=== PATIENT | female | born 1980 | race Caucasian/White ===

== ENCOUNTER 2016-10-24 12:49 | Emergency (ER) | payer OTHER ==
[~2016-10-24] VITALS: Ht 170.2 cm; Wt 72.6 kg
[~2016-10-24 12:49] MED LIST: CYCL5TAB PO; PROM25TA10 PO
[2016-10-24 13:00] VITALS: BP 120/70
--- NOTE | 2016-10-24 13:55 | PHYS DOC ---
Past Medical History Past Medical History: Anemia, Asthma, Bipolar, Depression, Other Additional Past Medical Histor: ADHD, MULTIPLE PERSONALITIES Past Surgical History: No Surgical History Alcohol Use: Heavy Drug Use: Cocaine, Marijuana Adult General Chief Complaint Chief Complaint: LOWER BACK PAIN OR INJURY [facility] HPI Patient is a 35 year old female comes emergency room today with complaint of atraumatic low back pain that began this morning. Patient denies history of spinal column or spinal cord injuries. She denies any history of bone forming disorders. Patient does report that her urine has been dark with increased frequency for approximately one week. Patient states that she does have a history of kidney infections. Patient denies antibiotic use within the past 90 days. Patient has any abdominal pain, pelvic pain, vaginal discharge, vaginal bleeding, nausea or vomiting. She denies fevers or chills as well. Of incidental note, patient was quick to ask for a work note for today as she is convinced ibuprofen work. Review of Systems Review of Systems Constitutional: Denies fever or chills [] Eyes: Denies change in visual acuity, redness, or eye pain [] HENT: Denies nasal congestion or sore throat [] Respiratory: Denies cough or shortness of breath [] Cardiovascular: No additional information not addressed in HPI [] GI: Denies abdominal pain, nausea, vomiting, bloody stools or diarrhea [] : Denies dysuria or hematuria [] Musculoskeletal: Denies back pain or joint pain [] Integument: Denies rash or skin lesions [] Neurologic: Denies headache, focal weakness or sensory changes [] Endocrine: Denies polyuria or polydipsia [] Allergies Allergies Allergies Coded Allergies Type Severity Reaction Last Updated Verified No Known Drug Allergies 07/14/16 No Physical Exam Physical Exam Constitutional: Well developed, well nourished, no acute distress, non-toxic appearance. Patient is afebrile. HENT: Normocephalic, atraumatic, bilateral external ears normal, oropharynx moist, no oral exudates, nose normal. [] Eyes: PERRLA, EOMI, conjunctiva normal, no discharge. [] Neck: Normal range of motion, no tenderness, supple, no stridor. [] Cardiovascular:Heart rate regular rhythm, no murmur [] Lungs & Thorax: Bilateral breath sounds clear to auscultation [] Abdomen: Bowel sounds normal, soft, no tenderness, no masses, no pulsatile masses. [] Skin: Warm, dry, no erythema, no rash. [] Back: Back is normal in appearance. There is no CVA tenderness. There is tenderness to palpation of the bilateral paraspinous soft tissues at the level of L3-L5. There is no palpable defect, deformity or spasm. Patient has no midline tenderness or step-off. Extremities: No tenderness, no cyanosis, no clubbing, ROM intact, no edema. [] Neurologic: Alert and oriented X 3, normal motor function, normal sensory function, no focal deficits noted. [] Psychologic: Affect normal, judgement normal, mood normal. [] Current Patient Data Vital Signs Vital Signs Date Time Temp Pulse Resp B/P Pulse Ox O2 Delivery O2 Flow Rate FiO2 10/24/16 13:00 98.1 85 16 96 Room Air 98.1 Lab Values Laboratory Tests Test 10/24/16 13:00 Urine Collection Type Unknown Urine Color Yellow Urine Clarity Cloudy Urine pH 7.0 Urine Specific [place] >=1.030 Urine Protein Negativemg/dL (NEG-TRACE) Urine Glucose (UA) Negativemg/dL (NEG) Urine Ketones (Stick) Tracemg/dL (NEG) Urine Blood Moderate (NEG) Urine Nitrite Positive (NEG) Urine Bilirubin Negative (NEG) Urine Urobilinogen Dipstick 1.0mg/dL (0.2 mg/dL) Urine Leukocyte Esterase Trace (NEG) Urine RBC 0/HPF (0-2) Urine WBC 5-10/HPF (0-4) Urine Squamous Epithelial Cells Few/LPF Urine Bacteria Many/HPF (0-FEW) Urine Mucus Mod/LPF EKG EKG [] Radiology/Procedures Radiology/Procedures [] Course & Med Decision Making Course & Med Decision Making Pertinent Labs and Imaging studies reviewed. (See chart for details) [] Dragon Disclaimer Dragon Disclaimer This electronic medical record was generated, in whole or in part, using a voice recognition dictation system. Departure Departure Impression: Primary Impression: Back pain Additional Impression: Urinary tract infection Disposition: 01 HOME, SELF-CARE Condition: GOOD Referrals: NO PCP (PCP) Patient Instructions: Back Pain, Adult, [id number], Urinary Tract Infection, [id number] Additional Instructions: 1. Your urine shows evidence of a urinary tract infection. This is commonly called a bladder infection. This is NOT a kidney infection. 2. Take the medication as prescribed. 3. Review the discharge instructions for self-care and reasons to return to the emergency department. 4. Use the pamphlet provided for assistance in finding a primary care doctor if you do not have one. If you do have a primary care doctor, then call this afternoon or tomorrow morning to schedule follow-up appointment for next week. Scripts Naproxen 500 Mg Tablet1 Tab PO BID back pain #20 TAB Ref 1 Prov:ERROL MONTEJO 10/24/16 Ciprofloxacin Hcl 500 Mg Tablet1 Tab PO BID #10 TAB Prov:ERROL MONTEJO 10/24/16 Problem Qualifiers ERROL MONTEJO Oct 24, 2016 13:55
[2016-10-24 14:24] LABS: BILIRUBIN,URINE NEGATIVE (NEG); GLUCOSE,URINE NEGATIVE (NEG); NITRITE,URINE POSITIVE (NEG); PROTEIN,URINE NEGATIVE (NEG-TRACE)
[2016-10-24 14:38] LABS: BACTERIA,URINE MANY /HPF (0-FEW); RBC,URINE 0 /HPF (0-2); SQUAMOUS EPITHELIAL CELL,UR FEW /LPF
[2016-10-24] MEDS ORDERED: NAPR500T3 PO (14:46)
[2016-10-24] MEDS ORDERED: CIPR500T PO (14:46)
== END 2016-10-24 14:50 | disposition home or self-care (01) ==
LOC: ER 12:49
DX: N39.0 Urinary tract infection, site not specified (principal); F90.9 Attention-deficit hyperactivity disorder, unspecified type; F31.9 Bipolar disorder, unspecified; J45.909 Unspecified asthma, uncomplicated; F44.81 Dissociative identity disorder; F12.10 Cannabis abuse, uncomplicated; F14.10 Cocaine abuse, uncomplicated; F10.10 Alcohol abuse, uncomplicated
CPT/HCPCS: 81001; 81025; 87086; 87186; 99284

== ENCOUNTER 2016-11-27 15:23 | Emergency (ER) | payer OTHER ==
[~2016-11-27 15:23] MED LIST changes: +CIPR500T PO; +NAPR500T3 PO
[2016-11-27 15:29] VITALS: BP 126/79
--- NOTE | 2016-11-27 15:42 | PHYS DOC ---
Past Medical History Past Medical History: Anemia, Asthma, Bipolar, Depression, Other Additional Past Medical Histor: ADHD, MULTIPLE PERSONALITIES Past Surgical History: No Surgical History Alcohol Use: Heavy Drug Use: Cocaine, Marijuana Adult General Chief Complaint Chief Complaint: BACK PAIN OR INJURY [facility] HPI Patient is a 35 year old female presents with a 2 day complaint of atraumatic low back pain, vomiting and dysuria. Patient states similar symptoms when she was last seen here. Patient states it was 2 weeks ago she was in the emergency department. Review of records show the patient was seen here October 24 by myself with the same complaint. Patient states that she did not take the antibiotics at that time. She denies any fevers or chills. She denies any bilious or bloody emesis. She denies any abdominal pain. She reports dysuria. She denies pelvic pain, vaginal bleeding or vaginal discharge. Patient states that she has not established a primary care doctor since her last visit here. Review of Systems Review of Systems Constitutional: Denies fever or chills [] Eyes: Denies change in visual acuity, redness, or eye pain [] HENT: Denies nasal congestion or sore throat [] Respiratory: Denies cough or shortness of breath [] Cardiovascular: No additional information not addressed in HPI [] GI: Denies abdominal pain, nausea, vomiting, bloody stools or diarrhea [] : Denies dysuria or hematuria [] Musculoskeletal: Denies back pain or joint pain [] Integument: Denies rash or skin lesions [] Neurologic: Denies headache, focal weakness or sensory changes [] Endocrine: Denies polyuria or polydipsia [] Allergies Allergies Allergies Coded Allergies Type Severity Reaction Last Updated Verified No Known Drug Allergies 07/14/16 No Physical Exam Physical Exam Constitutional: Well developed, well nourished, no acute distress, non-toxic appearance. Patient is afebrile. HENT: Normocephalic, atraumatic, bilateral external ears normal, oropharynx moist, no oral exudates, nose normal. Eyes: PERRLA, EOMI, conjunctiva normal, no discharge. [] Neck: Normal range of motion, no tenderness, supple, no stridor. Cardiovascular:Heart rate regular rhythm, no murmur Lungs & Thorax: Bilateral breath sounds clear to auscultation [] Abdomen: Bowel sounds normal, soft, no tenderness, no masses, no pulsatile masses. Skin: Warm, dry, no erythema, no rash. Brisk skin turgor. Back: No tenderness, no CVA tenderness. [] Extremities: No tenderness, no cyanosis, no clubbing, ROM intact, no edema. [] Neurologic: Alert and oriented X 3, normal motor function, normal sensory function, no focal deficits noted. [] Psychologic: Affect normal, judgement normal, mood normal. [] Current Patient Data Vital Signs Vital Signs Date Time Temp Pulse Resp B/P Pulse Ox O2 Delivery O2 Flow Rate FiO2 11/27/16 15:29 98.1 102 18 97 Room Air 98.1 Lab Values Laboratory Tests Test 11/27/16 14:48 11/27/16 15:40 POC Urine HCG, Qualitative Hcg negative (Negative) Urine Collection Type Unknown Urine Color Yellow Urine Clarity Cloudy Urine pH 6.0 Urine Specific [place] 1.025 Urine Protein 30mg/dL (NEG-TRACE) Urine Glucose (UA) Negativemg/dL (NEG) Urine Ketones (Stick) Negativemg/dL (NEG) Urine Blood Trace (NEG) Urine Nitrite Positive (NEG) Urine Bilirubin Negative (NEG) Urine Urobilinogen Dipstick 1.0mg/dL (0.2 mg/dL) Urine Leukocyte Esterase Small (NEG) Urine RBC 1-2/HPF (0-2) Urine WBC >40/HPF (0-4) Urine Squamous Epithelial Cells Few/LPF Urine Bacteria Many/HPF (0-FEW) Urine Mucus Mod/LPF EKG EKG [] Radiology/Procedures Radiology/Procedures [] Course & Med Decision Making Course & Med Decision Making Clinically, patient has no evidence of pyelonephritis. She does have a urinary tract infection. Patient has already demonstrated a history of noncompliance with antibiotics. She was also quick to express that she needs a work note for tonight. [place] Disclaimer Dragon Disclaimer This electronic medical record was generated, in whole or in part, using a voice recognition dictation system. Departure Departure Impression: Primary Impression: Urinary tract infection Disposition: 01 HOME, SELF-CARE Condition: GOOD Referrals: NO PCP (PCP) Patient Instructions: Urinary Tract Infection, [id number] Additional Instructions: 1. You have a bladder infection. There is no evidence of a kidney infection. 2. You need to take the medication as prescribed. You need to establish follow- up care with a primary care doctor. Use the pamphlet provided with your discharge instructions for assistance in finding one. 3. Review the discharge instructions provided for self-care and reasons to return to the emergency department. Scripts Naproxen 500 Mg Tablet1 Tab PO BID back pain #30 TAB Ref 1 Prov:ERROL MONTEJO 11/27/16 Nitrofurantoin Macrocrystal (Nitrofurantoin)100 Mg Capsule1 Cap PO BID #14 CAP Prov:ERROL MONTEJO 11/27/16 ERROL MONTEJO Nov 27, 2016 15:42
[2016-11-27 15:54] LABS: BILIRUBIN,URINE NEGATIVE (NEG); GLUCOSE,URINE NEGATIVE (NEG); NITRITE,URINE POSITIVE (NEG); PROTEIN,URINE 30 mg/dL (NEG-TRACE)
[2016-11-27 16:07] LABS: BACTERIA,URINE MANY /HPF (0-FEW); WBC,URINE >40 /HPF (0-4)
[2016-11-27 16:08] LABS: SQUAMOUS EPITHELIAL CELL,UR FEW /LPF
[2016-11-27] MEDS ORDERED: NITR100C PO (16:21)
[2016-11-27] MEDS ORDERED: NAPR500T3 PO (16:21)
== END 2016-11-27 16:29 | disposition home or self-care (01) ==
LOC: ER 15:23
DX: N39.0 Urinary tract infection, site not specified (principal); J45.909 Unspecified asthma, uncomplicated; F14.10 Cocaine abuse, uncomplicated; F12.10 Cannabis abuse, uncomplicated
CPT/HCPCS: 81001; 81025; 87086; 87186; 99284

== ENCOUNTER 2017-01-18 15:56 | Emergency (ER) | payer OTHER ==
[~2017-01-18 15:56] MED LIST changes: +NITR100C PO
[2017-01-18 16:05] VITALS: BP 122/70
[2017-01-18 16:39] LABS: BILIRUBIN,URINE NEGATIVE (NEG); GLUCOSE,URINE NEGATIVE (NEG); NITRITE,URINE POSITIVE (NEG); PROTEIN,URINE NEGATIVE (NEG-TRACE); UROBILINOGEN,URINE 0.2 mg/dL (0.2 mg/dL)
[2017-01-18 17:01] LABS: BACTERIA,URINE MANY /HPF (0-FEW); RBC,URINE 20-40 /HPF (0-2); SQUAMOUS EPITHELIAL CELL,UR FEW /LPF
--- NOTE | 2017-01-18 17:03 | PHYS DOC ---
Past Medical History Past Medical History: Anemia, Asthma, Bipolar, Depression, Other Additional Past Medical Histor: ADHD, MULTIPLE PERSONALITIES Past Surgical History: No Surgical History Alcohol Use: Heavy Drug Use: Cocaine, Marijuana Adult General Chief Complaint Chief Complaint: ABDOMINAL PAIN [facility] HPI Patient is a 36 year old female who presents with vaginal bleeding, abdominal cramping, and nausea that are typical of her menstrual cycles, but pain is slightly worse than usual and blood is brighter. 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 She also is concerned that she did not take antibiotics prescribed UTI during last ED visit here in due to money issues. She now has money for this and is curious if she still needs treatment due to symptoms. She does not currently have nausea. She denies f/c, emesis, back pain, diarrhea, constipation, vaginal discharge. Review of Systems Review of Systems Constitutional: Denies fever or chills [] Eyes: Denies change in visual acuity, redness, or eye pain [] HENT: Denies nasal congestion or sore throat [] Respiratory: Denies cough or shortness of breath [] Cardiovascular: No additional information not addressed in HPI [] GI: Denies vomiting, bloody stools or diarrhea [] : Denies dysuria or hematuria [] Musculoskeletal: Denies back pain or joint pain [] Integument: Denies rash or skin lesions [] Neurologic: Denies headache, focal weakness or sensory changes [] Endocrine: Denies polyuria or polydipsia [] Allergies Allergies Allergies Coded Allergies Type Severity Reaction Last Updated Verified No Known Drug Allergies 07/14/16 No Physical Exam Physical Exam Constitutional: Well developed, well nourished, no acute distress, non-toxic appearance. [] HENT: Normocephalic, atraumatic, bilateral external ears normal, oropharynx moist, nose normal. [] Eyes: PERRLA, EOMI. [] Neck: Normal range of motion, supple. [] Cardiovascular:Heart rate regular rhythm [] Lungs & Thorax: Bilateral breath sounds clear to auscultation [] Abdomen: Bowel sounds normal, soft, no tenderness. [] Skin: Warm, dry, no erythema, no rash. [] Back: Normal ROM. [] Extremities: No tenderness, ROM intact, no edema. [] Neurologic: Alert and oriented X 3, normal motor function, normal sensory function, no focal deficits noted. [] Psychologic: Affect normal, judgement normal, mood normal. [] Current Patient Data Vital Signs Vital Signs Date Time Temp Pulse Resp B/P (MAP) Pulse Ox O2 Delivery O2 Flow Rate FiO2 01/18/17 16:05 98.5 72 18 122/70 (87) 97 98.5 Lab Values Laboratory Tests Test 01/18/17 15:20 01/18/17 16:10 POC Urine HCG, Qualitative Hcg negative (Negative) Urine Collection Type Unknown Urine Color Yellow Urine Clarity Clear Urine pH 7.0 Urine Specific [place] 1.010 Urine Protein Negative mg/dL (NEG-TRACE) Urine Glucose (UA) Negative mg/dL (NEG) Urine Ketones (Stick) Trace mg/dL (NEG) Urine Blood Large (NEG) Urine Nitrite Positive (NEG) Urine Bilirubin Negative (NEG) Urine Urobilinogen Dipstick 0.2 mg/dL (0.2 mg/dL) Urine Leukocyte Esterase Small (NEG) Urine RBC 20-40 /HPF (0-2) Urine WBC 1-4 /HPF (0-4) Urine Squamous Epithelial Cells Few /LPF Urine Bacteria Many /HPF (0-FEW) Course & Med Decision Making Course & Med Decision Making Pertinent Labs and Imaging studies reviewed. (See chart for details) Prior urine cultures are sensitive to bactrim. Has evidence of UTI today. 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 Return precautions given. She understands and agrees with plan. Dragon Disclaimer Dragon Disclaimer This electronic medical record was generated, in whole or in part, using a voice recognition dictation system. Departure Departure Impression: Primary Impression: Urinary tract infection Disposition: HOME, SELF-CARE Condition: STABLE Referrals: NO PCP (PCP) Patient Instructions: Urinary Tract Infection, [id number] Additional Instructions: Take bactrim for UTI. Follow up with your supervisor of communications. Return for any concerns. Scripts Sulfamethoxazole/Trimethoprim (BACTRIM DS TABLET) 1 Each Tablet 1 TAB PO BID, #10 TAB Prov: Tiffany BOWDEN MD 01/18/17 Problem Qualifiers Primary Impression: Urinary tract infection Urinary tract infection type: acute cystitis Hematuria presence: without hematuria Qualified Codes: N30.00 - Acute cystitis without hematuria Tiffany BOWDEN MD January 18, 2017 17:03
[2017-01-18] MEDS ORDERED: SULF1TAB24 PO (17:07)
== END 2017-01-18 17:30 | disposition home or self-care (01) ==
LOC: ER 17:26
DX: N39.0 Urinary tract infection, site not specified (principal); F90.9 Attention-deficit hyperactivity disorder, unspecified type; J45.909 Unspecified asthma, uncomplicated; F31.9 Bipolar disorder, unspecified; Z86.2 Personal history of diseases of the blood and blood-forming organs and certain disorders involving the immune mechanism; F12.10 Cannabis abuse, uncomplicated; F14.10 Cocaine abuse, uncomplicated; F10.10 Alcohol abuse, uncomplicated
CPT/HCPCS: 81001; 81025; 84703; 87086; 99284

== ENCOUNTER 2017-03-12 13:24 | Emergency (ER) | payer OTHER ==
[~2017-03-12] VITALS: Ht 165.1 cm; Wt 52.2 kg
[~2017-03-12 13:24] MED LIST changes: +SULF1TAB24 PO
[2017-03-12 14:31] LABS: BILIRUBIN,URINE NEGATIVE (NEG); GLUCOSE,URINE NEGATIVE (NEG); NITRITE,URINE POSITIVE (NEG); PH,URINE 6.5; PROTEIN,URINE 30 mg/dL (NEG-TRACE)
[2017-03-12 14:37] LABS: BACTERIA,URINE MANY /HPF (0-FEW); RBC,URINE RARE /HPF (0-2); SQUAMOUS EPITHELIAL CELL,UR MANY /LPF
[2017-03-12 14:58] LABS: BASO % 0 % (0-3); EOS % 3 % (0-3); HEMATOCRIT 40.1 % (36.0-47.0); HEMOGLOBIN 14.1 g/dL (12.0-15.5); LYMPH # 1.9 x10^3/uL (1.0-4.8); LYMPH % 22 % (24-48); MEAN CORPUSCULAR HEMOGLOBIN 31 pg (25-35); MEAN CORPUSCULAR HGB CONC 35 g/dL (31-37); MEAN CORPUSCULAR VOLUME 87 fL (79-100); MONO % 11 % (0-9); NEUT % 64 % (31-73); PLATELET COUNT 193 x10^3/uL (140-400); RED BLOOD COUNT 4.61 x10^6/uL (3.50-5.40); RED CELL DISTRIBUTION WIDTH 13.2 % (11.5-14.5); WHITE BLOOD COUNT 8.6 x10^3/uL (4.0-11.0)
[2017-03-12] MEDS ORDERED: KETOROLAC TROMETHAMINE 30 MG/ML INJ. IV ONE (15:00)
[2017-03-12] MEDS ORDERED: ONDANSETRON PF 4 MG/2 ML VIAL. IV ONE (15:00)
[2017-03-12] MEDS ORDERED: IV NORMAL SALINE 1000ML BAG 1,000 ML IV SCH (15:00)
[2017-03-12 15:17] LABS: CALCIUM 9.2 mg/dL (8.5-10.1); CREATININE 0.5 mg/dL (0.6-1.0); GFR 141.2; POTASSIUM 3.6 mmol/L (3.5-5.1)
[2017-03-12 15:22] LABS: ALBUMIN 3.9 g/dL (3.4-5.0); ALBUMIN/GLOBULIN RATIO 1.2 (1.0-1.7); TOTAL BILIRUBIN 0.5 mg/dL (0.2-1.0); TOTAL PROTEIN 7.2 g/dL (6.4-8.2)
--- NOTE | 2017-03-12 15:49 | RAD ---
Right upper quadrant abdominal ultrasound, 03/12/2017: History: Epigastric and right upper quadrant pain The gallbladder is within normal limits in size. There is no sonographic evidence of cholelithiasis. The gallbladder terrazas are not thickened. The common hepatic duct measures 6 mm which is at the upper limits of normal. There is no evidence of intrahepatic bile duct dilatation. No hepatic mass is seen. The visualized portions of the pancreas are unremarkable. IMPRESSION: No significant gallbladder abnormality is detected.
[2017-03-12 16:30] VITALS: BP 109/64
[2017-03-12] MEDS ORDERED: CEPH-264 PO (16:54)
--- NOTE | 2017-03-12 16:54 | PHYS DOC ---
Past Medical History Past Medical History: Anemia, Asthma, Bipolar, Depression, Other Additional Past Medical Histor: ADHD, MULTIPLE PERSONALITIES Past Surgical History: No Surgical History Alcohol Use: Occasionally Drug Use: Marijuana Adult General Chief Complaint Chief Complaint: ABDOMINAL PAIN HPI HPI Patient is a 36 year old [f__sex] who presents with [] Review of Systems Review of Systems Constitutional: Denies fever or chills [] Eyes: Denies change in visual acuity, redness, or eye pain [] HENT: Denies nasal congestion or sore throat [] Respiratory: Denies cough or shortness of breath [] Cardiovascular: No additional information not addressed in HPI [] GI: Denies abdominal pain, nausea, vomiting, bloody stools or diarrhea [] : Denies dysuria or hematuria [] Musculoskeletal: Denies back pain or joint pain [] Integument: Denies rash or skin lesions [] Neurologic: Denies headache, focal weakness or sensory changes [] Endocrine: Denies polyuria or polydipsia [] Current Medications Current Medications Current Medications Medications (Trade) Dose Ordered Sig/Kia Start Time Stop Time Status Last Admin Dose Admin Cephalexin HCl (Keflex) 500 mg BID 03/12/17 17:00 Ketorolac Tromethamine (Toradol) 30 mg 1X ONCE 03/12/17 15:00 03/12/17 15:01 DC 03/12/17 15:10 30 MG Ondansetron HCl (Zofran) 4 mg 1X ONCE 03/12/17 15:00 03/12/17 15:01 DC 03/12/17 15:10 4 MG Sodium Chloride 1,000 ml @ 1,000 mls/hr Q1H 03/12/17 15:00 03/12/17 15:09 1,000 MLS/HR Allergies Allergies Allergies Coded Allergies Type Severity Reaction Last Updated Verified No Known Drug Allergies 07/14/16 No Physical Exam Physical Exam Constitutional: Well developed, well nourished, no acute distress, non-toxic appearance. [] HENT: Normocephalic, atraumatic, bilateral external ears normal, oropharynx moist, no oral exudates, nose normal. [] Eyes: PERRLA, EOMI, conjunctiva normal, no discharge. [] Neck: Normal range of motion, no tenderness, supple, no stridor. [] Cardiovascular:Heart rate regular rhythm, no murmur [] Lungs & Thorax: Bilateral breath sounds clear to auscultation [] Abdomen: Bowel sounds normal, soft, no tenderness, no masses, no pulsatile masses. [] Skin: Warm, dry, no erythema, no rash. [] Back: No tenderness, no CVA tenderness. [] Extremities: No tenderness, no cyanosis, no clubbing, ROM intact, no edema. [] Neurologic: Alert and oriented X 3, normal motor function, normal sensory function, no focal deficits noted. [] Psychologic: Affect normal, judgement normal, mood normal. [] Current Patient Data Vital Signs Vital Signs Date Time Temp Pulse Resp B/P (MAP) Pulse Ox O2 Delivery O2 Flow Rate FiO2 03/12/17 13:30 98.2 77 20 112/65 (81) 95 Room Air 98.2 Lab Values Laboratory Tests Test 03/12/17 12:41 03/12/17 13:33 03/12/17 14:55 POC Urine HCG, Qualitative Hcg negative (Negative) Urine Collection Type Unknown Urine Color Yellow Urine Clarity Cloudy Urine pH 6.5 Urine Specific [place] 1.025 Urine Protein 30 mg/dL (NEG-TRACE) Urine Glucose (UA) Negative mg/dL (NEG) Urine Ketones (Stick) 40 mg/dL (NEG) Urine Blood Negative (NEG) Urine Nitrite Positive (NEG) Urine Bilirubin Negative (NEG) Urine Urobilinogen Dipstick 1.0 mg/dL (0.2 mg/dL) Urine Leukocyte Esterase Moderate (NEG) Urine RBC Rare /HPF (0-2) Urine WBC 11-20 /HPF (0-4) Urine Squamous Epithelial Cells Many /LPF Urine Bacteria Many /HPF (0-FEW) Urine Mucus Marked /LPF White Blood Count 8.6 x10^3/uL (4.0-11.0) Red Blood Count 4.61 x10^6/uL (3.50-5.40) Hemoglobin 14.1 g/dL (12.0-15.5) Hematocrit 40.1 % (36.0-47.0) Mean Corpuscular Volume 87 fL (79-100) Mean Corpuscular Hemoglobin 31 pg (25-35) Mean Corpuscular Hemoglobin Concent 35 g/dL (31-37) Red Cell Distribution Width 13.2 % (11.5-14.5) Platelet Count 193 x10^3/uL (140-400) Neutrophils (%) (Auto) 64 % (31-73) Lymphocytes (%) (Auto) 22 % (24-48) L Monocytes (%) (Auto) 11 % (0-9) H Eosinophils (%) (Auto) 3 % (0-3) Basophils (%) (Auto) 0 % (0-3) Neutrophils # (Auto) 5.5 x10^3uL (1.8-7.7) Lymphocytes # (Auto) 1.9 x10^3/uL (1.0-4.8) Monocytes # (Auto) 1.0 x10^3/uL (0.0-1.1) Eosinophils # (Auto) 0.2 x10^3/uL (0.0-0.7) Basophils # (Auto) 0.0 x10^3/uL (0.0-0.2) Sodium Level 139 mmol/L (136-145) Potassium Level 3.6 mmol/L (3.5-5.1) Chloride Level 103 mmol/L (98-107) Carbon Dioxide Level 24 mmol/L (21-32) Anion Gap 12 (6-14) Blood Urea Nitrogen 10 mg/dL (7-20) Creatinine 0.5 mg/dL (0.6-1.0) L Estimated GFR (Cockcroft-Gault) 141.2 BUN/Creatinine Ratio 20 (6-20) Glucose Level 110 mg/dL (70-99) H Calcium Level 9.2 mg/dL (8.5-10.1) Total Bilirubin 0.5 mg/dL (0.2-1.0) Aspartate Amino Transferase (AST) 15 U/L (15-37) Alanine Aminotransferase (ALT) 16 U/L (14-59) Alkaline Phosphatase 65 U/L (46-116) Total Protein 7.2 g/dL (6.4-8.2) Albumin 3.9 g/dL (3.4-5.0) Albumin/Globulin Ratio 1.2 (1.0-1.7) Lipase 110 U/L (73-393) Laboratory Tests 03/12/17 14:55 Laboratory Tests 03/12/17 14:55 EKG EKG [] Radiology/Procedures Radiology/Procedures [] Course & Med Decision Making Course & Med Decision Making Pertinent Labs and Imaging studies reviewed. (See chart for details) [] Dragon Disclaimer Dragon Disclaimer This electronic medical record was generated, in whole or in part, using a voice recognition dictation system. Departure Departure Impression: Primary Impression: Urinary tract infection Disposition: 01 HOME, SELF-CARE Condition: IMPROVED Referrals: NO PCP (PCP) Patient Instructions: Abdominal Pain (Nonspecific), Urinary Tract Infection Additional Instructions: It is not clear what was causing your abdominal pain today that has now resolved. It is possible he may have some gastritis which is irritation of the stomach. Consider taking [id number] Prilosec to see if this might help your chronic recurrent symptoms of epigastric discomfort. Your labs and ultrasound were unremarkable today except the urinalysis showed a you have a urinary tract infection. Finish Keflex as prescribed and follow up with your doctor in 1-2 days. Drink plenty of fluids and return immediately for new severe or worsening symptoms Scripts Cephalexin (KEFLEX) 500 Mg Capsule 1 CAP PO QID, #56 CAP Prov: GURPREET MENDOZA MD 03/12/17 GURPREET MENDOZA MD Mar 12, 2017 16:54
[2017-03-12] MEDS ORDERED: CEPHALEXIN 250 MG CAPSULE. PO SCH (17:00)
== END 2017-03-12 17:05 | disposition home or self-care (01) ==
LOC: ER 13:24
DX: N39.0 Urinary tract infection, site not specified (principal); J45.909 Unspecified asthma, uncomplicated; F90.9 Attention-deficit hyperactivity disorder, unspecified type; F31.9 Bipolar disorder, unspecified; F44.81 Dissociative identity disorder; F12.10 Cannabis abuse, uncomplicated
CPT/HCPCS: 36415; 76705; 80053; 81001; 81025; 83690; 85027; 87086; 96361; 96374; 96375; 99285; J1885; J2405; J7030

== ENCOUNTER 2020-12-27 19:49 | Emergency (ER) | payer OTHER ==
[~2020-12-27] VITALS: Ht 165.1 cm; Wt 80.9 kg
[~2020-12-27 19:49] MED LIST changes: +CEPH-264 PO; -CIPR500T PO; +CIPR500T2 PO; +NAPR-514 PO; -NAPR500T3 PO
[2020-12-27] MEDS ORDERED: traMADol 50 MG TABLET PO ONE (21:30)
--- NOTE | 2020-12-27 21:39 | RAD ---
EXAM: 1. LEFT HAND 2 VIEWS. 2. LEFT WRIST 3 VIEWS. HISTORY: Pain after a fall. COMPARISON: None. FINDINGS: No fractures are identified in the wrist. Alignment is maintained. Joint spaces are maintai alejandro. No fractures are identified throughout the hand. Alignment is maintained. Joint spaces are maintained . IMPRESSION: 1. No fracture. Electronically signed by: Deepali Matthews MD (12/27/2020 9:37 PM) [facility]
--- NOTE | 2020-12-27 21:39 | RAD ---
EXAM: 1. LEFT HAND 2 VIEWS. 2. LEFT WRIST 3 VIEWS. HISTORY: Pain after a fall. COMPARISON: None. FINDINGS: No fractures are identified in the wrist. Alignment is maintained. Joint spaces are maintai alejandro. No fractures are identified throughout the hand. Alignment is maintained. Joint spaces are maintained . IMPRESSION: 1. No fracture. Electronically signed by: Deepali Matthews MD (12/27/2020 9:37 PM) [facility]
--- NOTE | 2020-12-27 21:58 | ED.ADGEN ---
Past Medical History Past Medical History: Anemia, Asthma, Bipolar, Depression, Other Additional Past Medical Histor: ADHD, MULTIPLE PERSONALITIES Past Surgical History: No Surgical History Additional Past Surgical Histo: IUD Smoking Status: Current Every Day Smoker Alcohol Use: None Drug Use: Marijuana Social History Narrative: ABOUT 1 HOUR AGO General Adult EDM: Chief Complaint: HAND PROBLEM HPI: HPI: Patient is a 40 year old female who presents emergency department with complaints of left thumb pain, swelling, and bruising after slipping on a wet floor tonight while working at [employer] and falling. Patient states that her left thumb feels numb and she reports increased pain with movement. She also complains of pain that radiates to her left wrist. Patient denies any decreased mobility of her left wrist. She denies any head, neck, or back pain after the fall. She currently rates pain in her left thumb a 10 out of 10 on pain scale, she reports that the pain is worse with palpation and range of motion. Review of Systems: Review of Systems: Complete ROS is negative unless otherwise noted in HPI. Current Medications: Current Medications Medications (Trade) Dose Ordered Sig/Kia Start Time Stop Time Status Last Admin Dose Admin Tramadol HCl (Ultram) 50 mg 1X ONCE 12/27/20 21:30 12/27/20 21:31 DC 12/27/20 22:20 50 MG Allergies: Allergies: Allergies Coded Allergies Type Severity Reaction Last Updated Verified No Known Drug Allergies 07/14/16 No Physical Exam: PE: See Above Constitutional: Well developed, well nourished, no acute distress, non-toxic appearance. [] HENT: Normocephalic, atraumatic, bilateral external ears normal, nose normal. [] Eyes: PERRLA, EOMI, conjunctiva normal, no discharge. [] Neck: Normal range of motion, no stridor. [] Cardiovascular:Heart rate regular rhythm Lungs & Thorax: Respirations even and unlabored, no retractions, no respiratory distress Skin: Warm, dry, no erythema, no rash. [] Extremities: Left hand, hematoma, 2+ edema, and tenderness to palpation of the proximal thumb with limited range of motion of the left thumb, cap refill less than 2 seconds, sensation intact, no obvious deformity or crepitus, no cyanosis, ROM intact, no edema. [] Neurologic: Alert and oriented X 3, normal sensory, no focal deficits noted. [] Psychologic: Affect normal, judgement normal, mood normal. [] Current Patient Data: Vital Signs: Vital Signs Date Time Temp Pulse Resp B/P (MAP) Pulse Ox O2 Delivery O2 Flow Rate FiO2 12/27/20 22:30 77 16 132/77 (95) 99 Room Air 12/27/20 19:55 99.4 99.4 EKG: EKG: [] Heart Score: C/O Chest Pain: No Risk Scores: Score 0 - 3: 2.5% MACE over next 6 weeks - Discharge Home Score 4 - 6: 20.3% MACE over next 6 weeks - Admit for Clinical Observation Score 7 - 10: 72.7% MACE over next 6 weeks - Early Invasive Strategies Radiology/Procedures: Radiology/Procedures: PROCEDURE: WRIST 3V LEFT EXAM: 1. LEFT HAND 2 VIEWS. 2. LEFT WRIST 3 VIEWS. HISTORY: Pain after a fall. COMPARISON: None. FINDINGS: No fractures are identified in the wrist. Alignment is maintained. Joint spaces are maintained. No fractures are identified throughout the hand. Alignment is maintained. Joint spaces are maintained. IMPRESSION: 1. No fracture. Electronically signed by: Deepali Matthews MD (12/27/2020 9:37 PM) [facility] [] Course & Med Decision Making: Course & Med Decision Making Pertinent Labs and Imaging studies reviewed. (See chart for details) [] Dragon Disclaimer: Dragon Disclaimer: This electronic medical record was generated, in whole or in part, using a voice recognition dictation system. Departure Departure Impression: Primary Impression: Contusion of thumb, left Additional Impressions: Pain of left thumb Acute pain of left wrist Disposition: 01 HOME / SELF CARE / HOMELESS Condition: STABLE Referrals: NO PCP (PCP) SENDY FENG MD Patient Instructions: Thumb Sprain Additional Instructions: Fill prescription(s) and use as directed. You may also take Tylenol or ibuprofen as needed for pain recommend application of ice, elevation, and rest of affected extremity. Wear the splint and sling that was placed until follow up appointment. Follow-up with Workmen's Comp. or Dr. Feng in 10 days for repeat x-ray return to the ER if your symptoms worsen. Scripts Tramadol Hcl (ULTRAM) 50 Mg Tablet 1 TAB PO PRN BID PRN for pain MDD 2 Tablet(s) for 2 Days, #4 TAB 0 Refills Prov: FAVIOLA JORDAN APRN 12/27/20 Splinting Splinting : Location: Left hand wrist Hand-Made Type: orthoglass Splint: volar Pre-Proc Neuro Vasc Exam: normal Post-Proc Neuro Vasc Exam: normal, unchanged from pre-exam Progress Patient was placed in a volar splint by myself using Ortho-Glass after heavily padding the painful area, thumb was immobilized by the splint that was applied. Cap refill remains less than 2 seconds after splint application. Attending Signature Attending Signature I have participated in the care of this patient and I have reviewed and agree with all pertinent clinical information above including history, exam, and recommendations. Problem Qualifiers Primary Impression: Contusion of thumb, left Encounter type: initial encounter Damage to nail status: without damage Qualified Codes: S60.012A - Contusion of left thumb without damage to nail, initial encounter FAVIOLA JORDAN APRN Dec 27, 2020 21:58 ZACHARY MAN DO Dec 28, 2020 13:20
[2020-12-27] MEDS ORDERED: TRAM-48 PO (22:22)
[2020-12-27 22:30] VITALS: BP 132/77
== END 2020-12-27 22:39 | disposition home or self-care (01) ==
LOC: ER 19:49
DX: S60.012A Contusion of left thumb without damage to nail, initial encounter (principal); M25.532 Pain in left wrist; D64.9 Anemia, unspecified; J45.909 Unspecified asthma, uncomplicated; F31.9 Bipolar disorder, unspecified; F17.200 Nicotine dependence, unspecified, uncomplicated; F12.90 Cannabis use, unspecified, uncomplicated; X58.XXXA Exposure to other specified factors, initial encounter; Y93.89 Activity, other specified; Y92.89 Other specified places as the place of occurrence of the external cause; Y99.8 Other external cause status
CPT/HCPCS: 29125; 73120; 73130; 99284

== ENCOUNTER 2021-01-08 14:09 | Emergency (ER) | payer OTHER ==
[~2021-01-08] VITALS: Ht 165.1 cm; Wt 72.7 kg
[~2021-01-08 14:09] MED LIST changes: +TRAM-48 PO
[2021-01-08 14:27] VITALS: BP 140/76
--- NOTE | 2021-01-08 15:00 | RAD ---
EXAM: Left hand, 3 views HISTORY: Pain. COMPARISON: None. FINDINGS: 3 views of the left hand are obtained. There is no acute fracture, dislocation or subluxati on. There is a corticated ossicle along the radial aspect of the first metacarpal phalangeal joint, t he appearance of which favors a chronic nonunited avulsion fracture fragment. There is no radiodense foreign body. IMPRESSION: No acute osseous finding. Electronically signed by: Marie Rice MD (01/08/2021 2:58 PM) [facility]
--- NOTE | 2021-01-08 15:21 | PHYS DOC ---
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 Yesterday she reports she was at work, she had the wrong work shoes and she slipped and fell hitting her left hand on a trash can. Patient denies any loss of consciousness, denies hitting her head on the ground. She states she has an appointment with orthopedic doctor tomorrow. She states she was given pain medicine from the ED which is helping with the pain. States the pain is exacerbated at work, she works for [employer]. She is also requesting a note for work. 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 [] Musculoskeletal: Reports left wrist left hand pain. Denies back pain Integument: Denies rash. [] Neurologic: Denies headache, focal weakness or sensory changes. [] Psychiatric: Denies depression or anxiety. 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 [] Skin: Warm, dry, no erythema, no rash. [] Back: No tenderness, no CVA tenderness. [] Extremities: Left upper extremity is in a splint, the exterior Royce wrap of the splint is very dirty, it was removed by me. There is no obvious deformity from the left upper extremity. There is no point tenderness to the left upper extrem ity. Full range of motion to the left fingers. +2 left radial pulse. Cap refill less than 2 seconds in left fingers. No scaphoid tenderness Neurologic: Alert and oriented X 3, normal motor function, normal sensory function, no focal deficits noted. [] Psychologic: Affect normal, judgement normal, mood normal. 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 COMPARISON: None. FINDINGS: 3 views of the left hand are obtained. There is no acute fracture, dislocation or subluxation. There is a corticated ossicle along the radial aspect of the first metacarpal phalangeal joint, the appearance of which favors a chronic nonunited avulsion fracture fragment. There is no radiodense foreign body. IMPRESSION: No acute osseous finding. Electronically signed by: Marie Malone MD (01/08/2021 2:58 PM) [facility] DICTATED and SIGNED BY: MARIE MALONE MD DATE: 01/08/21 [id number] (RUSSELL GRAF APRN) Course & Med Decision Making: Course & Med Decision Making Pertinent Labs and Imaging studies reviewed. (See chart for details) This is a 40-year-old female patient presenting to the ED today with left wrist/hand pain, see HPI. She originally fell on 27 December, had negative x-rays. Yesterday she fell at work. Left hand x-rays with a very good view of the wrist negative for any acute findings, neurovascular exam is intact. Provided a Velcro splint. Ice elevation encouraged. Follow-up with orthopedic tomorrow. Note for work provided for today (RUSSELL GRAF APRN) Dragon Disclaimer: Dragon Disclaimer: This electronic medical record was generated, in whole or in part, using a voice recognition dictation system. (RUSSELL GRAF APRN) Departure Departure Impression: Primary Impression: Fall Qualified Codes: W19.XXXA - Unspecified fall, initial encounter Additional Impressions: Contusion of left hand Qualified Codes: S60.222A - Contusion of left hand, initial encounter Left wrist sprain Qualified Codes: S63.502A - Unspecified sprain of left wrist, initial encounter Disposition: HOME / SELF CARE / HOMELESS Condition: STABLE Referrals: NO PCP (PCP) SENDY PERALTA MD follow up tomorrow Patient Instructions: Joint Sprain Additional Instructions: You were evaluated in the emergency room, and left hand x-rays are negative for any acute findings. We provided you a Velcro splint, wear it as needed. Try to ice and elevate the extremity. You can remove the Velcro splint and use your left hand and wrist. Take Tylenol or Motrin for pain. Follow-up with orthopedic doctor tomorrow. Attending Signature Attending Signature I have participated in the care of this patient and I have reviewed and agree with all pertinent clinical information above including history, exam, and r ecommendations. (ZACHARY MAN DO) RUSSELL GRAF APRN January 08, 2021 15:21 ZACHARY MAN DO January 08, 2021 17:46
== END 2021-01-08 15:20 | disposition home or self-care (01) ==
LOC: ER 14:09
DX: S63.502A Unspecified sprain of left wrist, initial encounter (principal); S60.222A Contusion of left hand, initial encounter; F31.9 Bipolar disorder, unspecified; J45.909 Unspecified asthma, uncomplicated; F90.9 Attention-deficit hyperactivity disorder, unspecified type; F17.200 Nicotine dependence, unspecified, uncomplicated; W01.198A Fall on same level from slipping, tripping and stumbling with subsequent striking against other object, initial encounter; Y93.89 Activity, other specified; Y92.89 Other specified places as the place of occurrence of the external cause; Y99.8 Other external cause status
CPT/HCPCS: 29125; 73130; 99283

== ENCOUNTER 2021-02-01 14:22 | Emergency (ER) | payer SELFPAY ==
[~2021-02-01] VITALS: Ht 165.1 cm; Wt 73.0 kg
--- NOTE | 2021-02-01 15:18 | PHYS DOC ---
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 Without swelling, bruising and pain. Patient rates her pain at a 7 out of 10. Patient states she called work and told them that she can come in but they stated she needed a doctor's note so she is here today. 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 [] Eyes: Denies change in visual acuity. [] HENT: Denies nasal congestion or sore throat. [] Respiratory: Denies cough or shortness of breath. [] Cardiovascular: Denies chest pain or edema. [] GI: Denies abdominal pain, nausea, vomiting, bloody stools or diarrhea. [] : Denies dysuria. [] Musculoskeletal: Denies back pain + right fifth toe joint pain. [] Integument: Denies rash. + Right fifth toe bruising [] Neurologic: Denies headache, focal weakness or sensory changes. [] Endocrine: Denies polyuria or polydipsia. [] Lymphatic: Denies swollen glands. [] Psychiatric: Denies depression or anxiety. [] (SWATHI POWERS SCRIPT WORKER) Heart Score: C/O Chest Pain: No Risk Factors: Risk Factors: DM, Current or recent (<one month) smoker, HTN, HLP, family history of CAD, obesity. Risk Scores: Score 0 - 3: 2.5% MACE over next 6 weeks - Discharge Home Score 4 - 6: 20.3% MACE over next 6 weeks - Admit for Clinical Observation Score 7 - 10: 72.7% MACE over next 6 weeks - Early Invasive Strategies (SWATHI POWERS SCRIPT WORKER) Allergies: Allergies: Allergies Coded Allergies Type Severity Reaction Last Updated Verified No Known Drug Allergies 07/14/16 No (SWATHI POWERS APRN) Physical Exam: PE: Constitutional: Well developed, well nourished, no acute distress, non-toxic appearance. [] HENT: Normocephalic, atraumatic, bilateral external ears normal, oropharynx moist, no oral exudates, nose normal. [] Eyes: PERRLA, EOMI, conjunctiva normal, no discharge. [] Neck: Normal range of motion, no tenderness, supple, no stridor. [] Cardiovascular:Heart rate regular rhythm, no murmur [] Lungs & Thorax: Bilateral breath sounds clear to auscultation [] Abdomen: Bowel sounds normal, soft, no tenderness, no masses, no pulsatile masses. [] Skin: Warm, dry, no erythema, no rash. Bruising to right fifth toe [] Back: No tenderness, no CVA tenderness. [] Extremities: R 5th toe tenderness, no cyanosis, no clubbing, ROM intact but limi katia, 2+ edema. [] Neurologic: Alert and oriented X 3, normal motor function, normal sensory function, no focal deficits noted. [] Psychologic: Affect normal, judgement normal, mood normal. [] (SWATHI POWERS APRN) EKG: EKG: [] (SWATHI POWERS APRN) Radiology/Procedures: Radiology/Procedures: [] Impression: [facility] [address] [facility] [place], [place] [id number] IMAGING REPORT Signed PATIENT: ECTOR ANTON ACCOUNT: [id number] : 1980 LOCATION: ER AGE: 40 SEX: F EXAM STATUS: REG ER ORD. PHYSICIAN: SWATHI POWERS APRN REASON: 5TH TOE INJURY, 5th toe bruised PROCEDURE: FOOT LEFT 3V XR FOOT_LEFT 3 VIEWS History: Reason: 5TH TOE INJURY, 5th toe bruised. Pain Technique: PA view of the foot and 2 additional views of the fifth digit Comparison: None. Findings: Acute comminuted fifth proximal phalanx minimally displaced fracture. There is adjacent soft tissue swelling. No additional fracture. No dislocation. Impression: 1. Acute left fifth proximal phalanx fracture. Electronically signed by: Pavel Gunn DO (02/01/2021 3:58 PM) [facility] DICTATED and SIGNED BY: PAVEL GUNN DO DATE: 02/01/21 [id number] (SWATHI POWERS APRN) Course & Med Decision Making: Course & Med Decision Making Pertinent Labs and Imaging studies reviewed. (See chart for details) See HPI. Alert and oriented x4. Ambulatory with a steady gait. Speaks in full clear sentences. Pedal pulse strong present. Slight bruising and 2+ swelling to the right fifth toe. No deformity. Cap refill less than 2 seconds. Denies any numbness or tingling. No laxity in the joint just limited due to pain. Patient is placed in a walking shoe. [] (SWATHI POWERS APRN) Dragon Disclaimer: Dragon Disclaimer: This electronic medical record was generated, in whole or in part, using a voice recognition dictation system. (SWATHI POWERS APRN) Departure Departure Impression: Primary Impression: Toe fracture, right Qualified Codes: S92.514A - Nondisplaced fracture of proximal phalanx of right lesser toe(s), initial encounter for closed fracture Disposition: 01 HOME / SELF CARE / HOMELESS Condition: STABLE Referrals: NO PCP (PCP) GURPREET HORTA DO Patient Instructions: Toe Fracture with [facility] Additional Instructions: Take ibuprofen or Tylenol for your pain. Ice. Follow-up with orthopedics. Attending Signature I have participated in the care of this patient and I have reviewed and agree with all pertinent clinical information above including history, exam, and recommendations. (MATEO HOLM DO) SWATHI POWERS APRN Feb 01, 2021 15:18 MATEO HOLM DO Feb 01, 2021 17:06
[2021-02-01 15:30] VITALS: BP 125/59
--- NOTE | 2021-02-01 16:00 | RAD ---
XR FOOT_LEFT 3 VIEWS History: Reason: 5TH TOE INJURY, 5th toe bruised. Pain Technique: PA view of the foot and 2 additional views of the fifth digit Comparison: None. Findings: Acute comminuted fifth proximal phalanx minimally displaced fracture. There is adjacent soft tissue s welling. No additional fracture. No dislocation. Impression: 1. Acute left fifth proximal phalanx fracture. Electronically signed by: Pavel Hill DO (02/01/2021 3:58 PM) [facility]
== END 2021-02-01 16:22 | disposition home or self-care (01) ==
LOC: ER 14:22
DX: S92.514A Nondisplaced fracture of proximal phalanx of right lesser toe(s), initial encounter for closed fracture (principal); F31.9 Bipolar disorder, unspecified; J45.909 Unspecified asthma, uncomplicated; F17.200 Nicotine dependence, unspecified, uncomplicated; W01.190A Fall on same level from slipping, tripping and stumbling with subsequent striking against furniture, initial encounter; Y92.69 Other specified industrial and construction area as the place of occurrence of the external cause; Y93.89 Activity, other specified; Y99.0 Civilian activity done for income or pay
CPT/HCPCS: 73630; 99283